=== PATIENT | female | born 1955 | race American Indian/Alaskan Native ===

== ENCOUNTER 2018-06-30 09:40 | Outpatient (CLI) | payer OTHER ==
[~2018-06-30 09:40] MED LIST: AMOX1TAB12 PO; CLONAZEPAM0.5 MG; DIOVAN320 MG; DIOVAN320 MG PO; FLONASE16 GM NS; NORVASC5 MG; NORVASC5 MG PO; SEROQUEL200 MG; TESSALON PERLE100 MG PO
== END 2018-06-30 09:49 | disposition home or self-care (01) ==
LOC: SONOGRAMA 09:40
DX: E04.2 Nontoxic multinodular goiter (principal)

== ENCOUNTER 2021-04-22 11:01 | Outpatient (CLI) | payer OTHER | END 2021-04-22 11:11 | disposition home or self-care (01) | LOC: NUCLEAR 11:01 | PROVIDERS: ATTEND Internal Medicine | DX: I87.2 Venous insufficiency (chronic) (peripheral) (principal) ==

== ENCOUNTER 2021-04-22 13:16 | Outpatient (CLI) | payer OTHER ==
[2021-05-23] MEDS ORDERED: SKELAXIN800 MG PO (09:22)
== END 2021-04-22 13:31 | disposition home or self-care (01) ==
LOC: SONOGRAMA 13:16
PROVIDERS: ATTEND Internal Medicine
DX: E03.9 Hypothyroidism, unspecified (principal)

== ENCOUNTER 2021-06-05 11:52 | Outpatient (CLI) | payer OTHER ==
[~2021-06-05 11:52] MED LIST changes: +SKELAXIN800 MG PO
== END 2021-06-05 12:08 | disposition home or self-care (01) ==
LOC: TOM 11:52
PROVIDERS: ATTEND Internal Medicine
DX: M54.2 Cervicalgia (principal); M50.323 Other cervical disc degeneration at C6-C7 level; J32.8 Other chronic sinusitis
CPT/HCPCS: 72141